=== PATIENT | female | born 1985 | race American Indian/Alaskan Native ===

== ENCOUNTER 2018-10-22 08:00 | Inpatient (IN) | payer MEDICAID ==
[2018-10-22] MEDS ORDERED: cefOXitin IV 2 gm in Dextrose 2 GM/50 ML BAG IVPB ONE (08:22)
[2018-10-22] MEDS ORDERED: Sodium Citrate/Citric Acid 15 ml Sol PO ONE (08:22)
[2018-10-22] MEDS ORDERED: Lactated Ringer's 1,000 ML IV ONE (08:22)
[2018-10-22] MEDS ORDERED: cefOXitin IV 2 gm in Saline 2 GM/50 ML BAG IVPB ONE (08:50)
[2018-10-22] MEDS ORDERED: Oxytocin 20 units in LR 2,000 ML IV ONE (08:51)
[2018-10-22 08:55] LABS: BASO % 0.6 % (0.0-2.0); EOS # 0.2 K/uL (0.0-0.7); EOS % 2.6 % (0.0-4.0); HEMOGLOBIN 9.7 g/dL (11.0-16.0); LYMPH # 2.1 K/uL (1.0-4.3); LYMPH % 25.7 % (20.0-40.0); MEAN CELL VOLUME 78.2 fL (81.0-99.0); MEAN CORPUSCULAR HEMOGLOBIN 25.8 pg (27.0-31.0); MEAN PLATELET VOLUME 8.7 fL (7.2-11.7); MONO % 12.2 % (0.0-10.0); NEUT # 4.9 K/uL (1.8-7.0); NEUT % 58.9 % (50.0-75.0); NRBC % 0.2 % (0.0-2.0); RBC 3.77 Mil/uL (3.80-5.20); RED CELL DISTRIBUTION WIDTH 15.3 % (11.5-14.5); SQUAMOUS EPITHIAL 6 /hpf (0-5); URINE BACTERIA MOD (<OCC); URINE BILIRUBIN NEGATIVE (NEGATIVE); URINE BLOOD NEGATIVE (NEGATIVE); URINE CLARITY Clear (Clear); URINE COLOR Yellow (YELLOW); URINE GLUCOSE (UA) NORMAL (Normal); URINE LEUKOCYTE ESTERASE NEG Leu/uL (Negative); URINE PROTEIN NEGATIVE (NEGATIVE); WHITE BLOOD COUNT 8.4 K/uL (4.8-10.8)
[2018-10-22 09:00] LABS: ALBUMIN 3.6 g/dL (3.5-5.0); ALT/SGPT 16 U/L (9-52); AST/SGOT 22 U/L (14-36); BLOOD UREA NITROGEN 3 mg/dL (7-17); GFR NON-AFRICAN AMERICAN > 60
[2018-10-22 09:29] LABS: HEPATITIS B SURFACE AG Negative (NEGATIVE)
[2018-10-22] MEDS ORDERED: ePHEDrine 50 mg/ml Inj ONE (11:37)
[2018-10-22] MEDS ORDERED: Morphine 1 mg/ml preservative-free Inj(Duramorph) ONE (11:38)
--- NOTE | 2018-10-22 12:02 | OBHP ---
Datetime: 10/22/2018 08:36 IP Adm Impression: Term, intrauterine ; No Active Labor; Intact Membranes IP Admit Plan: Admit to unit; Initiate Section protocol Admit Comment, IP Provider: 32 year old female at 37.5 weeks gestation with SARAH of 11/08/18 dated via 12 week US presents for scheduled repeat after 2 previous ones and secondary to v sandra thin lower uterine segment per MFM US with frequent contractions and increased risk of uterine ru pture, per Dr. Beaver. Patient reports adequate movement. She also reports contractions every 30 minutes to 1 hour. Denies leakage of fluid and vaginal bleeding. She denies fever, chills, nausea, vomiting, upper abdominal pain, generalized swelling and headache. Care: Dr. 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 Last coitus was in 06/2018. Denies hx of STDs. Reports hx o f ovarian cyst at 11 years old. Denies uterine fibroids. PMHx: Denies PSHx: x 2 (2004, 2007) Medications: PNV Allergies: Tramadol- itching, vomiting Family: Mother- at 50 years old, CHF, DM. Father-57 years old, living, no PMHX. Social: Denies tobacco, alcohol, drugs, for 5 months. Worked until 09/02 as a [employer] Assessment and Plan: 32 year old female at 37.5 weeks gestation Previous C/S x 2 and for repeat C/S secondary to thin Lower Uterine segment and contractions Multiparity and requesting Permanent Sterilization Admit to Unit, per Dr. Beaver request Initiate C-seciton protocol Admission and Pre-Op labs done Anticipate delivery Case discussed with Dr. Byers. Lizzy Palma, PGY-1. Pelvic Type - PN: Adequate Extremities - PN: Normal Abdomen - PN: Normal Back - PN: Not Done Breast - PN: Not Done Lungs - PN: Normal Heart - PN: Normal Thyroid - PN: Not Done HEENT - PN: Normal General - PN: Normal Presentation-Admit: Vertex FHR - Baseline A Provider: 140 Membranes, Provider: Intact Contraction Comments Provider: occassional Comments, ACOG Physical Exam: Abdomen: Gravid, non-tender, fundus at 38cm Gestation - Est Wks by US: 37.5 IP Hx Assessment: The History has been Reviewed and is Current Vital Signs Provider: Reviewed; Within Normal Limits IP Indication for Induction: Not Applicable IP Chief Complaint: Scheduled Section NICHD Variability Prov Fetus A: Moderate 6-25bpm NICHD Accel Fetus A IP Provider: [id number] FHR Category Provider Fetus A: Category I NICHD Decel Fetus A IP Provider: None Dilatation, Provider: 0 Effacement, Provider: 0 Station, Provider: -3 Genitourinary Exam: Normal DTRs - PN: Not Done
[2018-10-22] MEDS ORDERED: Oxytocin 10 Units/ml Inj ONE (12:06)
[2018-10-22] MEDS ORDERED: Midazolam 2 MG/2 ML VIAL ONE ×2 (12:09→13:11)
[2018-10-22] MEDS ORDERED: DiphenhydrAMINE 50 mg/ml Inj IVP PRN (13:58)
[2018-10-22] MEDS ORDERED: Oxytocin 30 UNIT 30 UNITS/500 ML BAG IV ONE (14:51)
[2018-10-22 20:41] LABS: BASO # 0.1 K/uL (0.0-0.2); BASO % 0.4 % (0.0-2.0); EOS # 0.1 K/uL (0.0-0.7); EOS % 0.6 % (0.0-4.0); LYMPH # 1.2 K/uL (1.0-4.3); LYMPH % 8.3 % (20.0-40.0); MEAN CELL VOLUME 78.4 fL (81.0-99.0); MEAN CORPUSCULAR HGB CONC 31.9 g/dL (33.0-37.0); MEAN PLATELET VOLUME 8.2 fL (7.2-11.7); MONO # 1.4 K/uL (0.0-0.8); MONO % 10.3 % (0.0-10.0); NEUT # 11.2 K/uL (1.8-7.0); NEUT % 80.4 % (50.0-75.0); PLATELET COUNT 310 K/uL (130-400); RBC 3.19 Mil/uL (3.80-5.20); RED CELL DISTRIBUTION WIDTH 15.2 % (11.5-14.5); WHITE BLOOD COUNT 13.9 K/uL (4.8-10.8)
[2018-10-22 21:24] LABS: ANISOCYTOSIS SLIGHT; BANDS 5 % (0-2); EOSINOPHIL 1 % (0-4); LYMPHOCYTE 8 % (20-40); MICROCYTOSIS SLIGHT; MONOCYTE 5 % (0-10); NEUTROPHIL 81 % (50-75); PLATELET ESTIMATE NORMAL (NORMAL); TOTAL CELLS COUNTED 100
[2018-10-23 06:40] LABS: HEMOGLOBIN 7.5 g/dL (11.0-16.0); MEAN CELL VOLUME 78.1 fL (81.0-99.0); MEAN CORPUSCULAR HEMOGLOBIN 25.4 pg (27.0-31.0); MEAN CORPUSCULAR HGB CONC 32.5 g/dL (33.0-37.0); MEAN PLATELET VOLUME 8.3 fL (7.2-11.7); RBC 2.97 Mil/uL (3.80-5.20); RED CELL DISTRIBUTION WIDTH 15.4 % (11.5-14.5); WHITE BLOOD COUNT 12.8 K/uL (4.8-10.8)
[2018-10-23] MEDS: Oxycodone/Acetaminophen 5/325 mg Tab PO PRN ×2 (10:00→17:01)
[2018-10-23] MEDS: Prenatal Multivit/Folic Acid/Iron Tab PO SCH (10:00)
[2018-10-23] MEDS: Simethicone 80 mg Chewtab PO SCH ×4 (10:00→21:46)
[2018-10-23 13:43] LABS: BASO % 0.2 % (0.0-2.0); EOS # 0.1 K/uL (0.0-0.7); EOS % 0.6 % (0.0-4.0); HEMOGLOBIN 7.6 g/dL (11.0-16.0); LYMPH # 1.1 K/uL (1.0-4.3); LYMPH % 6.9 % (20.0-40.0); MEAN CELL VOLUME 78.2 fL (81.0-99.0); MEAN CORPUSCULAR HEMOGLOBIN 25.5 pg (27.0-31.0); MEAN CORPUSCULAR HGB CONC 32.6 g/dL (33.0-37.0); MEAN PLATELET VOLUME 8.1 fL (7.2-11.7); MONO # 1.6 K/uL (0.0-0.8); MONO % 10.6 % (0.0-10.0); NEUT # 12.8 K/uL (1.8-7.0); NEUT % 81.7 % (50.0-75.0); PLATELET COUNT 354 K/uL (130-400); RED CELL DISTRIBUTION WIDTH 15.6 % (11.5-14.5); WHITE BLOOD COUNT 15.6 K/uL (4.8-10.8)
[2018-10-23 14:26] LABS: BANDS 1 % (0-2); LYMPHOCYTE 7 % (20-40); MONOCYTE 12 % (0-10); NEUTROPHIL 80 % (50-75); TOTAL CELLS COUNTED 100
[2018-10-23 14:27] LABS: ANISOCYTOSIS MODERATE; HYPOCHROMIC SLIGHT; LARGE PLATELETS PRESENT; MICROCYTOSIS SLIGHT; PLATELET ESTIMATE NORMAL (NORMAL); POLYCHROMIC SLIGHT
[2018-10-23 14:28] LABS: OVALOCYTES SLIGHT; POIKILOCYTOSIS SLIGHT; SCHISTOCYTES SLIGHT
[2018-10-24] MEDS: Oxycodone/Acetaminophen 5/325 mg Tab PO PRN ×3 (03:50→17:04)
[2018-10-24 09:15] LABS: BASO % 0.2 % (0.0-2.0); EOS # 0.2 K/uL (0.0-0.7); EOS % 1.9 % (0.0-4.0); HEMOGLOBIN 6.6 g/dL (11.0-16.0); LYMPH # 0.9 K/uL (1.0-4.3); LYMPH % 6.8 % (20.0-40.0); MEAN CORPUSCULAR HEMOGLOBIN 25.3 pg (27.0-31.0); MEAN CORPUSCULAR HGB CONC 32.4 g/dL (33.0-37.0); MEAN PLATELET VOLUME 8.2 fL (7.2-11.7); MONO # 1.2 K/uL (0.0-0.8); MONO % 9.3 % (0.0-10.0); NEUT # 10.8 K/uL (1.8-7.0); NEUT % 81.8 % (50.0-75.0); PLATELET COUNT 302 K/uL (130-400); RED CELL DISTRIBUTION WIDTH 15.5 % (11.5-14.5); WHITE BLOOD COUNT 13.2 K/uL (4.8-10.8)
[2018-10-24] MEDS: Simethicone 80 mg Chewtab PO SCH ×4 (09:15→22:30)
[2018-10-24] MEDS: Prenatal Multivit/Folic Acid/Iron Tab PO SCH (09:16)
[2018-10-24 10:58] LABS: LYMPHOCYTE 6 % (20-40); MONOCYTE 12 % (0-10); NEUTROPHIL 82 % (50-75); TOTAL CELLS COUNTED 100
[2018-10-24 10:59] LABS: PLATELET ESTIMATE NORMAL (NORMAL)
[2018-10-24 11:00] LABS: ANISOCYTOSIS MODERATE; HYPOCHROMIC SLIGHT; OVALOCYTES SLIGHT; POLYCHROMIC SLIGHT; SCHISTOCYTES SLIGHT; TOXIC GRANULATION PRESENT
[2018-10-24 11:01] LABS: LARGE PLATELETS PRESENT; PLATELET CLUMPS PRESENT
[2018-10-24 13:59] LABS: BASO % 0.3 % (0.0-2.0); EOS # 0.3 K/uL (0.0-0.7); EOS % 2.2 % (0.0-4.0); LYMPH # 1.2 K/uL (1.0-4.3); LYMPH % 8.8 % (20.0-40.0); MEAN CELL VOLUME 77.9 fL (81.0-99.0); MEAN CORPUSCULAR HEMOGLOBIN 25.5 pg (27.0-31.0); MEAN CORPUSCULAR HGB CONC 32.8 g/dL (33.0-37.0); MEAN PLATELET VOLUME 8.5 fL (7.2-11.7); MONO # 1.7 K/uL (0.0-0.8); MONO % 12.7 % (0.0-10.0); NRBC % 0.1 % (0.0-2.0); PLATELET COUNT 301 K/uL (130-400); RED CELL DISTRIBUTION WIDTH 15.7 % (11.5-14.5); WHITE BLOOD COUNT 13.1 K/uL (4.8-10.8)
[2018-10-24 14:07] LABS: HEMOGLOBIN 6.4 g/dL (11.0-16.0)
[2018-10-24 14:48] LABS: EOSINOPHIL 2 % (0-4); LYMPHOCYTE 9 % (20-40); MONOCYTE 15 % (0-10); NEUTROPHIL 74 % (50-75); PLATELET ESTIMATE NORMAL (NORMAL); TOTAL CELLS COUNTED 100
[2018-10-24 14:49] LABS: ANISOCYTOSIS MODERATE
[2018-10-24 14:50] LABS: HYPOCHROMIC SLIGHT; OVALOCYTES SLIGHT; POIKILOCYTOSIS SLIGHT; POLYCHROMIC SLIGHT
[2018-10-24 14:51] LABS: SCHISTOCYTES SLIGHT; TOXIC GRANULATION PRESENT
[2018-10-24 14:53] LABS: LARGE PLATELETS PRESENT
[2018-10-25] MEDS: Oxycodone/Acetaminophen 5/325 mg Tab PO PRN (01:47)
[2018-10-25] MEDS: Simethicone 80 mg Chewtab PO SCH ×5 (04:30→21:54)
[2018-10-25 07:22] LABS: BASO % 0.4 % (0.0-2.0); EOS # 0.4 K/uL (0.0-0.7); EOS % 4.4 % (0.0-4.0); LYMPH # 1.2 K/uL (1.0-4.3); LYMPH % 13.1 % (20.0-40.0); MEAN CELL VOLUME 78.1 fL (81.0-99.0); MEAN CORPUSCULAR HEMOGLOBIN 26.2 pg (27.0-31.0); MEAN CORPUSCULAR HGB CONC 33.5 g/dL (33.0-37.0); MEAN PLATELET VOLUME 8.2 fL (7.2-11.7); MONO % 10.7 % (0.0-10.0); NEUT # 6.5 K/uL (1.8-7.0); NEUT % 71.4 % (50.0-75.0); RBC 2.3 Mil/uL (3.80-5.20); RED CELL DISTRIBUTION WIDTH 15.9 % (11.5-14.5); WHITE BLOOD COUNT 9.2 K/uL (4.8-10.8)
[2018-10-25] MEDS: Prenatal Multivit/Folic Acid/Iron Tab PO SCH (09:38)
--- NOTE | 2018-10-25 16:19 | PCM.SURG1 ---
Surgeon's Initial Post Op Note - Surgeon's Notes Surgeon: Dr. Beaver Hairspring Assembler: Dr Kendy Castillo Type of Anesthesia: Spinal Pre-Operative Diagnosis: 32 yo for Repeat Cestion x3 in labor Operative Findings: AV uterus, multiple adhessions Post-Operative Diagnosis: Same as above Operation Performed: Repeat Csection x3 , PP Tubal ligation Specimen/Specimens Removed: Placenta, Cord PH, R ight and left tube Estimated Blood Loss: EBL {In ML}: 500 Blood Products Given: N/A Drains Used: No Drains Post-Op Condition: Good Date of Surgery/Procedure: 10/25/18 Time of Surgery/Procedure: 16:19
--- NOTE | 2018-10-25 16:22 | CP.PCM.PN ---
Subjective - Date & Time of Evaluation Date of Evaluation: 10/25/18 Time of Evaluation: 16:20 - Subjective Subjective: Patient has no Compains , tolerating diet , ambulating well , had BM Objective - Vital Signs/Intake and Output Vital Signs (last 24 hours): Temp Pulse Resp BP Pulse Ox 99 F 90 18 110/70 99 10/25/18 15:30 10/25/18 15:30 10/25/18 15:30 10/25/18 15:30 10/25/18 08:00 Intake and Output: 10/25/18 10/25/18 06:59 18:59 Intake Total 33 Balance 33 - Medications Medications: Current Medications Ascorbic Acid (Vitamin C 500 Mg Tab) 500 mg PO DAILY [facility] Last Admin: 10/25/18 09:38 Dose: 500 mg Bisacodyl (Dulcolax) 10 mg [place] DAILY PRN PRN Reason: Constipation Last Admin: 10/25/18 09:39 Dose: 10 mg Docusate Sodium (Colace) 100 mg PO BID [facility] Last Admin: 10/25/18 09:38 Dose: 100 mg Ferrous Sulfate (Feosol) 325 mg PO TID [facility] Last Admin: 10/25/18 13:48 Dose: 325 mg Ibuprofen (Motrin Tab) 600 mg PO Q6H PRN PRN Reason: Pain, Mild (1-3) Last Admin: 10/25/18 13:45 Dose: 600 mg Multivit/Folic Acid/Iron () 1 tab PO DAILY [facility] Last Admin: 10/25/18 09:38 Dose: 1 tab Simethicone (Mylicon Chew Tab) 80 mg PO QID [facility] Last Admin: 10/25/18 13:45 Dose: 80 mg - Labs Labs: 10/25/18 07:10 10/22/18 08:43 - Constitutional Appears: Well - Head Exam Head Exam: ATRAUMATIC, NORMAL INSPECTION, NORMOCEPHALIC - Eye Exam Eye Exam: EOMI, Normal appearance, PERRL - ENT Exam ENT Exam: Mucous Membranes Moist, Normal Exam - Neck Exam Neck Exam: Full ROM, Normal Inspection. absent: Lymphadenopathy - GI/Abdominal Exam GI & Abdominal Exam: Soft, Normal Bowel Sounds. absent: Tenderness - Rectal Exam Rectal Exam: NORMAL INSPECTION - Extremities Exam Extremities Exam: Full ROM, Normal Capillary Refill, Normal Inspection. absent: Joint Swelling, Pedal Edema - Psychiatric Exam Psychiatric exam: Normal Affect, Normal Mood Additional comments: Incision: C/D/I Assessment and Plan (1) Anemia affecting Status: Acute (2) S/P repeat low transverse Status: Acute (3) S/P repeat low transverse Status: Acute - Assessment and Plan (Free Text) Assessment: S/P Repeat Csection x3, PP BTL , anemia Plan: Continue Blood Transfusion Repeat CBC post transfusion
[2018-10-26 07:21] LABS: BASO % 0.4 % (0.0-2.0); EOS # 0.3 K/uL (0.0-0.7); EOS % 4.9 % (0.0-4.0); LYMPH # 1.2 K/uL (1.0-4.3); LYMPH % 18.7 % (20.0-40.0); MEAN CORPUSCULAR HEMOGLOBIN 27.1 pg (27.0-31.0); MEAN CORPUSCULAR HGB CONC 33.3 g/dL (33.0-37.0); MEAN PLATELET VOLUME 8.1 fL (7.2-11.7); MONO # 0.9 K/uL (0.0-0.8); MONO % 13.4 % (0.0-10.0); NEUT # 4.2 K/uL (1.8-7.0); NEUT % 62.6 % (50.0-75.0); NRBC % 0.5 % (0.0-2.0); RBC 3.07 Mil/uL (3.80-5.20); RED CELL DISTRIBUTION WIDTH 16.4 % (11.5-14.5); WHITE BLOOD COUNT 6.6 K/uL (4.8-10.8)
[2018-10-26 07:25] LABS: HEMOGLOBIN 8.3 g/dL (11.0-16.0); MEAN CELL VOLUME 81.2 fL (81.0-99.0)
[2018-10-26] MEDS: Simethicone 80 mg Chewtab PO SCH (10:01)
[2018-10-26] MEDS: Prenatal Multivit/Folic Acid/Iron Tab PO SCH (10:02)
[2018-10-26 21:03] VITALS: BP 116/74; PULSE 78; RESP 18; TEMP 98.7; O2SAT 99
--- NOTE | 2018-11-10 07:08 | OP ---
PROCEDURE DATE: 10/22/2018 PREOPERATIVE DIAGNOSIS: Patient at 37 weeks gestation for lower abdominal pain that was in labor. POSTOPERATIVE DIAGNOSIS: Patient at 37 weeks gestation for lower abdominal pain that was in labor. PROCEDURE: A repeat low-transverse section as well as repeat section. SURGEON: Nida Beaver MD SHIELD RUNNER: Farooq Castillo MD TYPE OF ANESTHESIA: Epidural. COMPLICATIONS: None. ESTIMATED BLOOD LOSS: `600 mL. FLUIDS: 1500 mL. URINE OUTPUT: 300 mL of clear urine at the end of the procedure. INDICATION: Patient was a 3, para 2 at 37 weeks' that was complaining of lower abdominal pain. A sonogram demonstrated that she had a very thin lower uterine segment, which is less than 1 mm, which was scanned through the ultrasound. FINDINGS: A female in breech presentation. scores were 9 and 9. Multiple adhesions were noted. Tubes and ovaries were identified. Additional to the procedure she also had a tubal ligation. The patient was informed of the risk factors, benefits and alternatives of the procedure. Risks factors included infection, bleeding, damage to the surrounding organs and tissues, complication from anesthesia and possible . DESCRIPTION OF PROCEDURE: The patient was then taken to the operating room where an epidural anesthesia was found to be adequate. She was then prepped and draped in a normal sterile fashion placed in a dorsal supine position with a leftward tilt. A Pfannenstiel skin incision was made with a scalpel and carried to the underlying layers of the fascia with the Bovie. The fascia was then excised in the midline. The incision extended laterally with the Henriquez scissors. The superior aspect of the fascial incision was then grasped with Otilia clamps, elevated, and the underlying rectus muscle was dissected off bluntly. Attention was then turned to the inferior aspect of the incision, which in a similar fashion was grasped, tented up with Otilia clamps, and the rectus muscle was dissected off bluntly. The rectus muscle was then in the midline, and the peritoneum was identified, tented up and entered sharply with the Metzenbaum scissors. The peritoneal incision was extended superiorly and inferiorly with good visualization of the bladder. The bladder blade was inserted, the vesicouterine peritoneum was identified. In that particular instance, an incision was then made and extended laterally. Bladder flap was created digitally. The bladder blade was then reinserted. The lower uterine segment was then incised in a transverse fashion with the scalpel. The uterine incision was then extended laterally with the bandage scissors and the bladder blade was then removed. and the 's head was delivered atraumatically. The nose and mouth were suctioned. The infant was handed off to the awaiting human services assistant and cord gasses were sent. The placenta was then removed manually. The uterus was exteriorized and cleaned off all clots and debris. The uterine incision was repaired with a 1-0 Vicryl in a running locking fashion and a second layer of 1-0 Monocryl was also utilized. In that particular instance, it was noted ostia was identified. It was then grasped and LigaSure device was utilized to doubly clamp to remove the tubes with excellent hemostasis. The same was done on the right. The tubes were then submitted to Pathology. Upon then, the uterus was re-entered into the cavity and the gutters were cleaned off all clots and debris. The peritoneum was reapproximated with 2-0 chromic. The fascia was reapproximated with 0 Vicryl in a running fashion. The skin was closed with a 4-0 Monocryl. The patient tolerated the procedure well. Sponge, lap, and needle count were correct x2. 2 g of cefotetan was given at the cord clamps. The patient was taken to the recovery room in stable condition. Nida Beaver MD
== END 2018-10-26 13:30 | disposition home or self-care (01) | DRG 370 ==
LOC: C.EROB 08:00 → C.4D 08:21 → C.4M 20:40
PROVIDERS: ADMIT Obstetrics & Gynecology; ATTEND Obstetrics & Gynecology
PROC: 10D00Z1 Extraction of Products of Conception, Low, Open Approach (ICD-10-PCS; principal; 2018-10-22)
PROC: 0UT70ZZ Resection of Bilateral Fallopian Tubes, Open Approach (ICD-10-PCS; 2018-10-22)
DX: O32.1XX0 Maternal care for breech presentation, not applicable or unspecified (principal); O99.02 Anemia complicating childbirth; D64.9 Anemia, unspecified; O34.211 Maternal care for low transverse scar from previous cesarean delivery; Z3A.37 37 weeks gestation of pregnancy; Z37.0 Single live birth; Z30.2 Encounter for sterilization